=== PATIENT | male | born 1950 | race African-American/Black ===

== ENCOUNTER 2016-04-19 08:18 | Inpatient (IN) | payer OTHER ==
[~2016-04-19] VITALS: Ht 188 cm; Wt 93.0 kg
[2016-04-19 08:54] LABS: BASOPHILS % (AUTO) 0.9 % (0.0-2.0); DIFF TOTAL % 100 %; EOSINOPHILS # (AUTO) 0.5 /CMM (0.0-0.7); EOSINOPHILS % (AUTO) 9.7 % (0.0-6.0); HEMATOCRIT 41 % (39-51); HEMOGLOBIN 13.7 g/dL (13.5-17.5); LYMPHOCYTES % (AUTO) 38.7 % (20.0-44.0); MEAN CORPUSCULAR HEMOGLOBIN 33 PG (26.0-33.0); MEAN CORPUSCULAR HGB CONC 34 g/dl (31.0-36.0); MEAN CORPUSCULAR VOLUME 97 fL (80-96); MONOCYTES # (AUTO) 0.5 /CMM (0.1-1.30); MONOCYTES % (AUTO) 8.9 % (2.0-12.0); NEUTROPHILS # (AUTO) 2.2 /CMM (1.8-8.9); NEUTROPHILS % (AUTO) 41.8 % (43.0-81.0); PLATELET COUNT (AUTO) 202 /CMM (150-450); RED BLOOD CELL COUNT(AUTO) 4.18 MIL/uL (4.5-6.0); WHITE BLOOD COUNT (AUTO) 5.2 K/uL (4.3-11.0)
[2016-04-19 09:06] LABS: CALCIUM, SERUM 8.9 mg/dL (8.5-10.1); CREATININE 1.8 mg/dL (0.6-1.3); POTASSIUM 3.6 mmol/L (3.5-5.1)
[2016-04-19 09:14] LABS: INR 0.97 (0.87-1.13); PROTHROMBIN TIME 10.5 SECS (9.5-12.7); TROPONIN I 0.039 ng/mL (0.00-0.056)
[2016-04-19] MEDS ORDERED: OMEP20CA10 PO (09:17)
[2016-04-19] MEDS ORDERED: NIFE60TA2 PO (09:17)
[2016-04-19] MEDS ORDERED: ALBU18HF2 IH (09:17)
[2016-04-19] MEDS ORDERED: LOSA100T3 PO (09:17)
[2016-04-19] MEDS ORDERED: ATOR10TA PO (09:17)
[2016-04-19] MEDS ORDERED: ASPI81TA2 PO (09:17)
[2016-04-19] MEDS ORDERED: METO25TA3 PO (09:17)
[2016-04-19] MEDS ORDERED: IV NS 0.9% 1,000 ML IV PRN ×2 (10:06→11:00)
[2016-04-19 11:00] VITALS: BP 111/59
[2016-04-19] MEDS ORDERED: LORAZEPAM INJ 2 MG/ML VIAL IV PRN (11:00)
[2016-04-19] MEDS ORDERED: IV D5/ 0.9% NACL 1,000 ML IV PRN (11:00)
[2016-04-19] MEDS ORDERED: ONDANSETRON HCL/PF 4 MG/2 ML VIAL IVP PRN (11:00)
[2016-04-19] MEDS ORDERED: ACETAMINOPHEN 325 MG TABLET PO PRN (11:00)
[2016-04-19 11:04] VITALS: BP 93/59
[2016-04-19 11:09] VITALS: BP 62/48
[2016-04-19] MEDS ORDERED: ALBUTEROL SULFATE 8 GM HFA.AER.AD IH PRN (11:30)
[2016-04-19] MEDS ORDERED: Thiamine 100 MG in IV D5W 50 ML IV SCH (12:00)
[2016-04-19] MEDS ORDERED: ALBUTEROL FS 2.5 MG/3 ML VIAL.NEB NEB PRN (12:00)
[2016-04-19] MEDS ORDERED: Folic acid 1 MG in IV D5W 50 ML IV SCH (12:00)
[2016-04-19] MEDS ORDERED: SECONDARY IV SET 1 EA INFUS.SET MC ONE (12:39)
[2016-04-19] MEDS ORDERED: IV SET PRIMARY PUMP SET 1 EA INFUS.SET MC ONE (12:39)
[2016-04-19 12:56] LABS: PHOSPHORUS 4.6 mg/dL (2.5-4.9); THYROID STIMULATING HORMONE 1.25 uIU/mL (0.358-3.74)
[2016-04-19 16:00] VITALS: BP 120/63
[2016-04-20] MEDS ORDERED: ATORVASTATIN 10 MG TABLET PO SCH (09:00)
[2016-04-20] MEDS ORDERED: MULTIVITAMINS,THERAPEUTIC 1 UDTAB TABLET PO SCH (09:00)
[2016-04-20] MEDS ORDERED: ASPIRIN 81 MG TAB.CHEW PO SCH (09:00)
[2016-04-20] MEDS ORDERED: NIFEdipine XL (30MG) 30 MG TAB PO SCH (09:00)
[2016-04-20] MEDS ORDERED: PANTOPRAZOLE 40 MG TABLET.DR PO SCH (09:00)
[2016-04-20] MEDS ORDERED: METOPROLOL SUCCINATE 25 MG TAB.SR.24H PO SCH (09:00)
== END 2016-04-19 19:00 | disposition left against medical advice (07) | DRG 312 ==
LOC: ER 08:21 → TELE 09:55
PROVIDERS: ADMIT Internal Medicine; ATTEND Internal Medicine
DX: R55 Syncope and collapse (principal); G93.41 Metabolic encephalopathy; F10.239 Alcohol dependence with withdrawal, unspecified; E11.9 Type 2 diabetes mellitus without complications; E78.5 Hyperlipidemia, unspecified; I10 Essential (primary) hypertension; F17.210 Nicotine dependence, cigarettes, uncomplicated; K21.9 Gastro-esophageal reflux disease without esophagitis; J45.909 Unspecified asthma, uncomplicated; J44.9 Chronic obstructive pulmonary disease, unspecified; Z95.2 Presence of prosthetic heart valve; I25.10 Atherosclerotic heart disease of native coronary artery without angina pectoris; F10.229 Alcohol dependence with intoxication, unspecified; I34.0 Nonrheumatic mitral (valve) insufficiency; I35.1 Nonrheumatic aortic (valve) insufficiency
CPT/HCPCS: 36415; 70450-TC; 71010-TC; 80048-TC; 80061-TC; 82306; 83735-TC; 83880; 84100-TC; 84439-TC; 84443-TC; 84484-TC; 85025-TC; 85730-TC; 87081-TC; 93307-TC; 95819-TC; A4606; J3411; J3490; J7042; J7060; Z7610